=== PATIENT | female | born 1985 | race Caucasian/White ===

== ENCOUNTER → 2016-06-06 | Outpatient (CLI) | payer OTHER ==
[~2016-06-06] MED LIST: PRENTAB26 PO
[2016-06-06 17:41] LABS: HEMATOCRIT 32.4 % (37-47)
[2016-06-06 18:35] LABS: GTGD 50 Grams
== END | disposition home or self-care (01) ==
LOC: C.LAB1850 15:17
PROVIDERS: ATTEND Obstetrics & Gynecology
DX: O09.03 Supervision of pregnancy with history of infertility, third trimester (principal)

== ENCOUNTER → 2016-06-06 | Outpatient (CLI) | payer OTHER ==
[2016-06-06 18:38] LABS: URINE APPEARANCE CLEAR (CLEAR); URINE BILIRUBIN NEG (NEG); URINE COLOR YELLOW; URINE EPITHELIAL CELL AUTO >30 /lpf (0-5); URINE NITRITE NEG (NEG); UROBILINOGEN NEG (NEG)
[2016-06-06 18:45] LABS: MANUAL MICROSCOPIC REQUIRED? NO; REVIEW REQ? NO
== END | disposition home or self-care (01) ==
LOC: C.LABSPEC 18:02
PROVIDERS: ATTEND Obstetrics & Gynecology
DX: O09.03 Supervision of pregnancy with history of infertility, third trimester (principal)

== ENCOUNTER → 2016-06-16 | Outpatient (CLI) | payer OTHER | END | disposition home or self-care (01) | LOC: C.LAB1850 07:46 | PROVIDERS: ATTEND Obstetrics & Gynecology | DX: O28.1 Abnormal biochemical finding on antenatal screening of mother (principal) ==

== ENCOUNTER 2016-07-21 17:15 | Outpatient (CLI) | payer OTHER | END 2016-07-21 17:50 | disposition home or self-care (01) | LOC: C.OPB 17:15 → C.LD 17:17 → C.OPB 17:50 | PROVIDERS: ATTEND Obstetrics & Gynecology | DX: O26.893 Other specified pregnancy related conditions, third trimester (principal); Z3A.34 34 weeks gestation of pregnancy ==

== ENCOUNTER → 2016-08-04 | Outpatient (CLI) | payer OTHER | END | disposition home or self-care (01) | LOC: C.LABSPEC 17:40 | PROVIDERS: ATTEND Obstetrics & Gynecology | DX: O09.03 Supervision of pregnancy with history of infertility, third trimester (principal); Z3A.00 Weeks of gestation of pregnancy not specified ==

== ENCOUNTER 2016-08-26 21:19 | Inpatient (IN) | payer OTHER ==
[~2016-08-26] VITALS: Ht 170.2 cm; Wt 79.8 kg
[2016-08-26] MEDS ORDERED: LACTATED RINGER'S 1000ML 1,000 ML IV PRN (21:53)
[2016-08-26] MEDS ORDERED: PRENTAB26 PO (21:56)
[2016-08-26 22:34] VITALS: Ht 170.2 cm; Wt 79.8 kg
[2016-08-26 23:17] LABS: MEAN CORPUSCULAR HGB CONC 34.5 g/dl (32-36)
[2016-08-26 23:19] LABS: HEMATOCRIT 34.8 % (37-47); MEAN CELL VOLUME 85.1 fL (80-100); MEAN CORPUSCULAR HEMOGLOBIN 29.3 pg (25-34); RED BLOOD COUNT 4.09 M/uL (4.2-5.4); WHITE BLOOD COUNT 12.56 K/uL (4.8-10.8)
[2016-08-26 23:27] LABS: PLATELET COUNT 187 K/uL (130-400)
[2016-08-27 00:05] LABS: PLT ESTIMATE NORMAL
[2016-08-27] MEDS ORDERED: LACTATED RINGER'S 1000ML 500 ML IV PRN ×2 (02:49→06:50)
[2016-08-27] MEDS ORDERED: BUTORPHANOL TARTRATE 1 MG/ML VIAL IV ONE (03:00)
[2016-08-27] MEDS ORDERED: OXYTOCIN 30 UNITS/500ML NSS IV PRN ×2 (03:00→14:45)
[2016-08-27] MEDS: LACTATED RINGER'S 1000ML 1,000 ML IV SCH ×2 (03:23→06:39)
[2016-08-27] MEDS ORDERED: BUPIVACAINE 0.25% 30 ML VIAL ONE (06:02)
[2016-08-27] MEDS ORDERED: EpHEDrine SULFATE INJ 50 MG/ML AMP ONE (06:02)
[2016-08-27] MEDS ORDERED: FENTANYL 2MCG/ML ROPIV 1.25MG/ML 100ML BAG EPI ONE (06:02)
[2016-08-27] MEDS ORDERED: FENTANYL CITRATE INJ 50 MCG/1 ML 2 ML VIAL ONE (06:03)
[2016-08-27] MEDS ORDERED: NALOXONE HCL INJ 1 MG in SODIUM CHLORIDE 0.9% 1000ML 1,000 ML IV PRN (06:50)
[2016-08-27] MEDS ORDERED: FENTANYL 2MCG/ML ROPIV 1.25MG/ML 100ML BAG EPI PRN (07:00)
[2016-08-27] MEDS ORDERED: EpHEDrine SULFATE INJ 50 MG/ML AMP IV PRN (07:00)
[2016-08-27] MEDS ORDERED: DiphenhydrAMINE HCL 50 MG/ML VIAL IV PRN (07:00)
[2016-08-27] MEDS ORDERED: NALBUPHINE HCL INJ 10 MG/ML AMP IV PRN (07:00)
[2016-08-27] MEDS ORDERED: NALOXONE HCL INJ 0.4 MG/1 ML VIAL/CARP IV PRN (07:00)
[2016-08-27] MEDS ORDERED: ONDANSETRON INJ 2 MG/ML 2 ML VIAL IV PRN (07:00)
--- NOTE | 2016-08-27 14:42 | Anesthesia Procedure Note ---
Anesthesia Epidural Removal Nt Date & Time August 27, 2016 at 14:42 Vital Signs Pain Intensity: 7.0 Notes Mental Status: alert / awake / arousable, participated in evaluation Nausea / Vomiting: adequately controlled Pain: adequately controlled Airway Patency, RR, SpO2: stable & adequate BP & HR: stable & adequate Hydration State: stable & adequate Neuraxial Anesthesia: was administered Anesthetic Complications: no major complications apparent, pt satisfied with anesthetic care Epidural: removed without complications, with tip intact
[2016-08-27] MEDS ORDERED: LANOLIN OINT EXT PRN ×2 (14:45)
[2016-08-27] MEDS ORDERED: ACETAMINOPHEN 325 MG TAB PO PRN (14:45)
[2016-08-27] MEDS ORDERED: HYDROCORTISONE ACETATE 25 MG SUPP PR PRN (14:45)
[2016-08-27] MEDS ORDERED: OXYCODONE/ACETAMINOPHEN 5-325 TAB PO PRN (14:45)
[2016-08-27] MEDS ORDERED: BENZOCAINE 20% AER SPR 82.5 GM CAN EXT PRN (14:45)
[2016-08-27] MEDS ORDERED: ACETAMINOPHEN/CODEINE 300/30MG TAB PO PRN ×2 (14:45)
[2016-08-27] MEDS ORDERED: DIPHTHERIA/TETANUS/PERTUSSIS 0.5 ML SYR/VIAL IM. ONE (14:45)
[2016-08-27] MEDS ORDERED: SUPERCREAM 0.870 % 15GM JAR EXT PRN (14:45)
--- NOTE | 2016-08-27 14:46 | Medical Student: [facility] ---
Medical Student Delivery Note Pt is a 30 yo EDC 08/26/16 who arrived at [facility] on 08/27/16 with a complaint of ROM. has been uncomplicated. Cervix upon admission was 1cm, 50% effaced, station -[address] Mckeon. Pt was given an epidural for pain management. Beginning of second stage was at 13:00. Pt pushed for 1 hour and viable baby F with 9,10 was born in right occiput posterior position. Suction performed. No nuchal cord present. Anterior and posterior shoulder delivered easily and baby placed on mother's abdomen for attention and drying. Cord clamped and intact 3 vessel cord and placenta delivered spontaneously. Inspection of the perineum showed a midline 2nd degree laceration which was repaired with one 3-0 Vicryl suture. EBL 400cc. Hemostasis was achieved with uterine massage and diluted Pitocin. Sponge and needle count correct. Mother and baby doing well.
[2016-08-27 17:50] VITALS: BP 102/70; PULSE 106; TEMP 36.9
--- NOTE | 2016-08-27 19:23 | DELIVERY SUMMARY ---
DATE OF OPERATION: 08/26/2016 PREOPERATIVE DIAGOSES: 1. Intrauterine at 39 and 5/7 weeks. 2. Spontaneous rupture of membranes prior to labor. POSTOPERATIVE DIAGNOSES: Same. PROCEDURES: 1. Pitocin augmentation. 2. Epidural anesthesia. 3. Normal spontaneous vaginal delivery. 4. Second degree perineal laceration with repair. SURGEON: MD Linda. TREE PRUNER: June Restrepo MS3. ESTIMATED BLOOD LOSS: 400 mL. ANESTHESIA: Epidural. PROCEDURE IN DETAIL: The patient presented to labor and delivery with spontaneous rupture of membranes prior to the onset of labor. She was 1-2 cm dilated, 50% at that time. She walked for 6 hours and was really essentially unchanged. At that time, I recommended Pitocin augmentation which she was agreeable to. She underwent Pitocin augmentation and then when she was 3 cm, underwent an epidural anesthesic. She then progressed with Pitocin augmentation to complete and +2 station after laboring down for an hour. She then pushed very effectively to deliver a viable female in right occiput posterior presentation. There was no nuchal cord. The nose and mouth were bulb suctioned and the rest of the infant was been delivered without difficulty. The nose and mouth were being again bulb suctioned. The was placed on the maternal abdomen where the cord was clamped and cut at 60 seconds. Cord blood was obtained. Placenta was delivered spontaneously intact with a 3-vessel cord. Cervix, sulci, and rectum were examined and found to be intact. On rectal exam, the rectal sphincter was intact and the patient was able to contract it. Second degree perineal laceration was repaired in normal sterile fashion with 3-0 Vicryl. Exam at the end of the procedure again showed no stitches in the rectum and contraction of the rectal sphincter. The placenta was delivered spontaneously, intact with a 3-vessel cord. Hemostasis was obtained with dilute Pitocin and fundal massage. Estimated blood loss was 400 mL. Apgars 9 and 10. Mother and baby doing well at the end of the delivery. I attest to the content of the Intraoperative Record and any orders documented therein. Any exceptio ns are noted below.
[2016-08-27 19:30] VITALS: BP 122/79; PULSE 88; TEMP 36.7
[2016-08-27] MEDS: DOCUSATE SODIUM 100 MG CAP PO SCH (21:32)
[2016-08-27 23:20] VITALS: BP 108/71; PULSE 78; TEMP 36.8; O2SAT 98
[2016-08-28] MEDS: IBUPROFEN 600 MG TAB PO PRN ×2 (01:32→08:06)
[2016-08-28 03:30] VITALS: BP 105/69; PULSE 79; TEMP 36.9; O2SAT 99
--- NOTE | 2016-08-28 06:50 | Progress Note ---
Subjective August 28, 2016. Subjective conversation w/ patient, physical exam, lab review Ambulation: ambulating normally Voiding: no voiding problems Passing Gas: Yes Diet Tolerance: Regular Diet Lochia: Moderate Feeding Type: Breast Feeding Pain: improves with pain medication Comment: Patient was seen at the bedside. No acute event overnight. Review of Systems Constitutional: No fever Respiratory: No cough, No shortness of breath Cardiac: No chest pain Breast: No breast lump Abdomen: No nausea, No pain, No vomiting Female : No dysuria, No urinary frequency Denies headache or dizziness this morning Objective Vital Signs Date Time Temp Pulse Resp B/P Pulse Ox O2 Delivery O2 Flow Rate FiO2 08/28/16 03:30 36.9 79 18 105/69 99 Room Air 08/27/16 23:20 36.8 78 18 108/71 98 Room Air 08/27/16 23:20 Room Air 08/27/16 19:30 36.7 88 16 122/79 Room Air 08/27/16 17:50 Room Air 08/27/16 17:50 36.9 106 18 102/70 Room Air Physical Exam General Appearance: WELL-APPEARING, WD/WN, NO APPARENT DISTRESS Respiratory/Chest: chest non-tender, lungs clear, normal breath sounds, no respiratory distress Cardiovascular: regular rate, rhythm Abdomen: normal bowel sounds, non tender, soft Fundus: Firm, Relation to Umbilicus (at the U) Extremities: non-tender, no pedal edema, no calf tenderness Laboratory Results Last 24 Hours Test 08/28/16 04:44 Medications Current Inpatient Medications Medications (Trade) Dose Ordered Sig/Yolis Route Start Time Stop Time Status Last Admin Dose Admin Oxytocin (Pitocin IV) 30 units UD PRN IV 08/27/16 14:45 09/26/16 14:44 Benzocaine (Dermoplast Aero Spr) 1 appln PRN PRN EXT 08/27/16 14:45 09/26/16 14:44 Cocaine HCl (Supercream 0.870% Cr) BID PRN EXT 08/27/16 14:45 09/10/16 14:44 Hydrocortisone Acetate (Anusol Hc Supp) 25 mg BID PRN IL 08/27/16 14:45 09/26/16 14:44 Lanolin (Lanolin Oint) PRN PRN EXT 08/27/16 14:45 09/26/16 14:44 Prenat Multivit/ Renfrow/Iron/Folic Ac ( Vitamin Tab) 1 tab DAILY PO 08/28/16 08:00 09/27/16 07:59 Ibuprofen (Motrin Tab) 600 mg Q4H PRN PO 08/27/16 14:45 09/26/16 14:44 08/28/16 01:32 600 MG Acetaminophen (Tylenol Tab) 650 mg Q6H PRN PO 08/27/16 14:45 09/26/16 14:44 Acetaminophen/ Codeine Phosphate (Tylenol w/ Codeine #3 Tab) 1 tab Q4H PRN PO 08/27/16 14:45 09/26/16 14:44 Acetaminophen/ Codeine Phosphate (Tylenol w/ Codeine #3 Tab) 2 tab Q4H PRN PO 08/27/16 14:45 09/26/16 14:44 Bisacodyl (Dulcolax Tab) 5 mg 20 PO 08/28/16 20:00 08/28/16 20:01 Bisacodyl (Dulcolax Supp) 10 mg DAILY PRN IL 08/29/16 07:00 Docusate Sodium (coLACE CAP) 100 mg BID PO 08/27/16 20:00 09/26/16 19:59 Assessment and Plan Post- Day#: 1 Continue Routine Care: A/P: This is a 30 y/o female, , s/p normal vaginal delivery. She is ambulating and clinically stable. Plan: - Vitals signs are reviewed and WNL (Tmax 36.9 ) - Last Hgb is 10.9 - Blood type A+, GBS neg, Rubella Immune - Routine care - Encourage ambulation, monitor and control pain with medication as needed , continue with regular diet as tolerated and monitor lochia - Stool softeners and sitz bath recommended - Encourage breast feeding and educate about breast feeding Resident Physician Supervision Note: I interviewed and examined the patient. Discussed with Dr. Coley and agree with findings and plan as documented in the note. Any exceptions or clarifications are listed here: Doing well. Routine PP care. Documented By: Miriam Mckeon
[2016-08-28 07:25] VITALS: BP 103/69; PULSE 91; TEMP 37.1; O2SAT 100
[2016-08-28 07:25] LABS: HEMATOCRIT 33.4 % (37-47)
[2016-08-28] MEDS: DOCUSATE SODIUM 100 MG CAP PO SCH ×2 (08:06→19:45)
[2016-08-28] MEDS: PRENATAL VITAMIN TAB PO SCH (08:07)
[2016-08-28 11:25] VITALS: BP 120/81; PULSE 84; TEMP 36.7; O2SAT 99
[2016-08-28 15:30] VITALS: BP 111/75; PULSE 84; TEMP 37; O2SAT 96
[2016-08-28] MEDS ORDERED: BISACODYL 5 MG TABEC PO SCH (20:00)
[2016-08-28 23:55] VITALS: BP 104/68; PULSE 76; TEMP 37
[2016-08-29] MEDS ORDERED: BISACODYL 10 MG SUPP PR PRN (07:00)
--- NOTE | 2016-08-29 07:12 | Progress Note ---
Subjective August 29, 2016. Subjective conversation w/ patient, physical exam Ambulation: ambulating normally Voiding: no voiding problems Passing Gas: Yes Diet Tolerance: Regular Diet Lochia: Moderate Feeding Type: Breast Feeding Review of Systems Constitutional: No problem reported Respiratory: No problem reported Cardiac: No problem reported Breast: No problem reported Abdomen: No problem reported Female : No problem reported Objective Vital Signs Date Time Temp Pulse Resp B/P Pulse Ox O2 Delivery O2 Flow Rate FiO2 08/28/16 23:57 Room Air 08/28/16 23:55 37.0 76 18 104/68 08/28/16 19:30 Room Air 08/28/16 16:10 Room Air 08/28/16 15:30 37.0 84 18 111/75 96 Room Air 08/28/16 11:25 36.7 84 16 120/81 99 Room Air 08/28/16 07:25 37.1 91 16 103/69 100 Room Air 08/28/16 07:25 Room Air Physical Exam General Appearance: WELL-APPEARING, NO APPARENT DISTRESS Respiratory/Chest: no respiratory distress Cardiovascular: regular rate, rhythm Abdomen: non tender, soft Fundus: Firm Extremities: normal inspection Laboratory Results Last 24 Hours Test 08/28/16 07:19 Hemoglobin 10.9 g/dL Hematocrit 33.4 % Assessment and Plan Post- Day#: 2 Continue Routine Care: PPD#2, doing well. Discharge to home today. Discussed discharge instructions. RTO 6w.
--- NOTE | 2016-08-29 07:13 | Discharge Instructions ---
Discharge Instructions Date of Service August 29, 2016. Admission Reason for Admission: Check Rupture Discharge Discharge Diagnosis / Problem: s/p vaginal delivery Discharge Goals Goal(s): Routine recovery after delivery Activity Recommendations Activity Limitations: per Instructions/Follow-up section . Instructions / Follow-Up Instructions / Follow-Up ACTIVITY RECOMMENDATIONS: * Gradual return to full activity over the next 2-3 weeks. * No lifting - nothing heavier than baby over the next 2-3 weeks. * Do not engage in vigorous exercise, sexual activity or sports until cleared by your physician. * Do not drive or operate any motorized equipment until cleared by your physician. * You may shower/bathe daily. MEDICATIONS: For discomfort or pain, you may use Acetaminophen (Tylenol), Ibuprofen (Advil), or Naproxen (Aleve) following the package directions. For constipation you may use Colace following the package directions. BREAST CARE: If you are not breast feeding: * Wear a supportive bra 24 hours a day for one to two weeks. * Avoid stimulating your breasts and nipples as much as possible during the first few weeks after delivery. * When taking a shower, have the warm water hit your back, not breasts. * When your breasts feel full, apply ice packs. Usually three to four times a day helps ease the discomfort. * Take a mild pain medication (Tylenol / Motrin) when you are uncomfortable. If breast feeding: * Use breast milk to lubricate nipples. Lansinoh cream may be used for sore nipples. You do not need to remove cream prior to breast feeding. If using a different brand of cream, check the label for directions regarding removal of cream prior to nursing. * Wear a supportive bra. * If having problems with breasts or breast feeding, call a big machine consultant or your health care provider. EPISIOTOMY CARE: After delivery, if you have an episiotomy (stitches), the following steps will ease discomfort and aid healing. * For the first 24 hours after delivery, place ice packs next to your episiotomy to help reduce swelling. * After the first 24 hour-period, sitz baths, either portable or in the tub, are suggested. A shower with a shower arm sprayed over the episiotomy may be comforting. * Kerline care should be done after each voiding and bowel movement. Squirt warm water from a plastic bottle over the perineum (region of the body between the anus and urinary opening) and pat dry. * Use Dermoplast to ease discomfort. Shake container. [place] directly over the episiotomy. Place a Tucks on a clean sanitary pad next to your episiotomy. SPECIAL CARE INSTRUCTIONS: When you are discharged from the hospital, it is important for you to follow the instructions listed below: * During the first week at home, you should be able to care for yourself and your baby. In addition, the usual light household activities are encouraged. * Limit your activities to the way you feel. Do not try to clean the house or move furniture. Be sensible. * If you actively engage in sports and have done so up until the time of your delivery, you may resume these activities as soon as you feel able. This may take up to one month or even longer. Use good judgment. * Continue to take your vitamins for at least six weeks after the of your baby. * Your diet need not be limited unless you were on a special diet before your delivery. Breast-feeding mothers need around 2500 calories per day and at least 64-80 ounces of fluid per day (8 to 10 glasses). * You should eat foods from the four major food groups. Crash diets or fad diets are to be avoided. Eating lean meats, fresh fruits and vegetables, low-fat dairy products, high fiber foods and a regular exercise program, will help you get back to your pre- weight without putting your health at risk. * Constipation is sometimes a problem after delivery. Take a mild laxative as needed. If breast feeding, Milk of Magnesia is acceptable to use. You may use a suppository or Fleets enema if no episiotomy. * A daily shower or tub bath is suggested. Be sure to thoroughly and gently dry the perineum. * A bloody vaginal discharge will usually continue until around four weeks post . A small amount of bleeding may continue for as long as six weeks. Vaginal discharge changes from the bright red bleeding after delivery to pink then brownish and finally yellowish-pink before becoming white and disappearing. * Bleeding may increase with activity. Your first period may come in 4-8 weeks. If you are breast feeding, your period may be delayed even longer. * Hiko (sex) can begin whenever both you and your partner feel comfortable and do not have any form of genital infection. It is recommended that you wait at least six weeks for internal and external healing to occur. If you have questions, please talk to your health care practitioner. A condom should be used to prevent infection and . * Foreplay, gentle intercourse and lubrication is very important the first several times to prevent pain. A water-based lubricant such as K-Y jelly or Astroglide may be used. * If you have RH negative blood and your baby is RH positive, you will receive RHOGAM by injection prior to discharge. The nurse will give you a card to keep with you that has the date and place that you received RHOGAM after delivery. * During your care, you had a Rubella screen done to check for the presence of rubella antibodies in your blood. If your test was negative, you will receive a Rubella vaccine prior to discharge. This vaccine may cause a fever, soreness at the injection site and flu-like symptoms. If these symptoms persist, notify your health care practitioner. is not advised for one month after a Rubella vaccine. * Verbalizes understanding of car seat law as reviewed with patient nursing. * Car Seat hand-out given and reviewed with patient by nursing. * Shaken baby information reviewed with patient by nursing. Call you doctor if: * Heavy bleeding (saturating several pads an hour) or passing clots the size of your fist. * A fever >101 degrees F (38.3 degrees C) on two occasions four hours apart and /or chills. * Unusual pain in the pelvic or vaginal areas. * "Baby Blues" lasting longer than two weeks. If you have any questions or concerns, call your health care practitioner at . FOLLOW UP VISIT: * Please call the office at to schedule a 6 week examination. It is important you keep this appointment. It is important for you to make arrangements for either yearly or twice yearly check-ups thereafter. Current Hospital Diet Patient's current hospital diet: Regular OB Diet Discharge Diet Recommended Diet: Regular OB Diet Pending Studies Studies pending at discharge: no Medical Emergencies . Who to Call and When: Medical Emergencies: If at any time you feel your situation is an emergency, please call 911 immediately. . Non-Emergent Contact Non-Emergency issues call your: Primary Care Provider, Meat Lugger . . "Provider Documentation" section prepared by Meredith Crump. . VTE Core Measure Inpt VTE Proph given/why not?: Treatment not indicated
[2016-08-29 07:30] VITALS: BP 101/67; PULSE 75; TEMP 37; O2SAT 98
[2016-08-29] MEDS: PRENATAL VITAMIN TAB PO SCH (08:10)
[2016-08-29] MEDS: DOCUSATE SODIUM 100 MG CAP PO SCH (08:10)
[2016-08-29] MEDS: IBUPROFEN 600 MG TAB PO PRN (08:11)
[2016-08-29 11:50] VITALS: BP_DIAS 67; PULSE 75; TEMP 37
== END 2016-08-29 11:50 | disposition home or self-care (01) | DRG 775 ==
LOC: C.OPB 21:19 → C.LD 21:19 → C.OPB 21:54 → C.LD 21:54 → C.OBG 08-27 18:07
PROVIDERS: ADMIT Obstetrics & Gynecology; ATTEND Obstetrics & Gynecology
PROC: 0KQM0ZZ Repair Perineum Muscle, Open Approach (ICD-10-PCS; principal; 2016-08-27)
PROC: 10E0XZZ Delivery of Products of Conception, External Approach (ICD-10-PCS; principal; 2016-08-27)
DX: O42.02 Full-term premature rupture of membranes, onset of labor within 24 hours of rupture (principal); O70.1 Second degree perineal laceration during delivery; Z37.0 Single live birth; Z3A.39 39 weeks gestation of pregnancy

== ENCOUNTER → 2016-10-12 | Outpatient (CLI) | payer OTHER | END | disposition home or self-care (01) | LOC: C.PAPS 14:24 | PROVIDERS: ATTEND Obstetrics & Gynecology | DX: Z12.4 Encounter for screening for malignant neoplasm of cervix (principal) ==